=== PATIENT | female | born 1990 | race Caucasian/White ===

== ENCOUNTER 2020-01-19 17:17 | Emergency (ER) | payer BC, SELFPAY ==
[2020-01-19 17:23] VITALS: BP 153/97; PULSE 88; RESP 24; TEMP 36.5; O2SAT 100
--- NOTE | 2020-01-19 17:36 | ED.GENADULT ---
HPI - General Adult General Chief complaint: Upper Respiratory Infection Stated complaint: sore throat Time Seen by Provider: 01/19/20 17:36 Source: patient and RN notes reviewed Mode of arrival: ambulatory Limitations: no limitations History of Present Illness HPI narrative: 29-year-old female presents with complaints of fatigue and sore throat for the past 2 days. Ibuprofen, last 01/18/20 @ 18:00 with little relief. No high fevers, drooling, neck or throat swelling. Pain is bilateral, greater on the right side. Hurts to swallow. Exacerbation factors consist of eating and drinking. No rhinorrhea or nasal congestion. No voice change. Tolerating liquids well. Denies chills, dyspnea, difficulty swallowing, jaw pain, dental pain, facial pain, foreign body sensation, and rash. Remains active. LMP ended 01/17/20 per Betzaida. The patient reports she have not been diagnosed with COVID-19. The patient reports she is not waiting for the results of a COVID-19 lab test. The patient reports she do not have fever, chills, weakness, fatigue, myalgia, or facial swelling. The patient reports she do not have a new or worsening cough or shortness of breath. Denies chest pain. The patient reports she do not have any rhinorrhea, congestion, nausea, vomiting, abdominal pain, and diarrhea. Denies recent traveling. Denies concerns for COVID-19 or exposures been home since yacb-co-qcoa order except for essential household needs, working, and return home. At this time, patient is not suspected of having COVID-19. Some parts of this dictation were generated by voice recognition software and may contain typographical and/or grammatical inaccuracies. Related Data Allergies Allergy/AdvReac Type Severity Reaction Status Date / Time No Known Allergies Allergy Unverified 01/19/20 17:20 Review of Systems Review of Systems: Narrative: CONSTITUTIONAL: Denies fever, chills, sweats. Complains of fatigue. EYES: Denies visual changes, redness, discharge. ENT: Denies rhinorrhea, otalgia, congestion. Complains of sore throat. CARDIOVASCULAR: Denies chest pain, palpitations, edema. RESPIRATORY: Denies dyspnea, wheezing, cough. GASTROINTESTINAL: Denies abdominal pain, nausea congestion, vomiting, diarrhea. GENITOURINARY: Denies dysuria, hematuria, abnormal discharge. SKIN: Denies rash or itching. MUSCULOSKELETAL: Denies acute back pain, joint pain, or myalgia. NEUROLOGIC: Denies numbness or focal weakness. PSYCHIATRIC: Denies anxiety or depression. All systems reviewed & are unremarkable except as noted in HPI and below. [facility] Past Medical History Medical History (Updated 01/26/20 @ 02:33 by BRANDON Sood) Knee injury Surgical History Surgical History (Updated 01/26/20 @ 02:33 by BRANDON Sood) History of cholecystectomy 2017 Family History Family History Other Diabetes mellitus Family history of seizure disorder Social History Social History (Updated 01/26/20 @ 02:34 by BRANDON Sood) Smoking status: Never smoker Second hand tobacco smoke exposure: No Alcohol intake: never Substance use: never Living arrangements: with family Occupation/Education: occupation Gender identity (if verbalized by the patient): Female Comments At time of signature, agree with nurse past medical, surgical, social, and family history. There is no relevant family history pertinent to the presenting complaint. Exam Narrative: Exam Narrative: GENERAL: This is a well-nourished, well-developed patient, in no apparent distress. Speaks in full sentences without deficits and ambulates with steady gait without dyspnea. HEAD: normocephalic, atraumatic. EYES: PERRL. Sclera clear/white. Vision is grossly intact. EARS: External ears normal, auditory canals clear and without drainage, TMs normal without perforation. Hearing grossly intact. NOSE: External nose normal
== END 2020-01-19 18:08 | disposition home or self-care (01) ==
PROVIDERS: Emergency Provider Nurse Practitioner Family; PCP Family Medicine
DX: J02.9 Acute pharyngitis, unspecified (principal); Z20.828 Contact with and (suspected) exposure to other viral communicable diseases; R03.0 Elevated blood-pressure reading, without diagnosis of hypertension
CPT/HCPCS: 87081; 87804; 87880; 99213; G0463

== ENCOUNTER 2020-03-03 17:02 | Emergency (ER) | payer OTHER, BC, SELFPAY ==
--- NOTE | ~2020-03-03 | XR_ITS ---
EXAMINATION: XR hand RT min 3V EXAM DATE: 03/03/2020 17:18 INDICATION: Initial encounter following injury, with pain of the right hand, 4th finger, 4th metacar pal. TECHNIQUE: Right hand frontal, lateral and oblique projections obtained and reviewed. There is no pr ior study for comparison. FINDINGS: Right metacarpal bones are unremarkable. There are no acute fractures or dislocations iden tified. There is no subcutaneous gas. The soft tissue is unremarkable. There are no radiopaque fo reign bodies. IMPRESSION: 1. Right hand exam without acute osseous findings. Reviewed, dictated and finalized at location A.
--- NOTE | 2020-03-03 17:23 | ED.UPPEXIN ---
HPI - Extremity Injury (Upper) General Chief Complaint: Extremity Injury, Upper Stated Complaint: R/hand injury Time Seen by Provider: 03/03/20 17:04 Source: patient Mode of arrival: ambulatory Limitations: no limitations History of Present Illness HPI narrative: 29 year old female presents to urgent care with complaints of pain to her right fourth finger after jamming it against the wall of a freezer while at work last night at 10:15 PM. Patient has been taking [id number] ibuprofen with minimal relief. Patient denies numbness, tingling, erythema or bruising. MD complaint: injury to: right and finger (4th) Place: work Severity: mild Exacerbating factors: movement of extremity Associated symptoms: denies other symptoms Treatments prior to arrival: NSAIDS Related Data Home Medications Medication Instructions Recorded Confirmed omeprazole 20 mg PO DAILY 03/03/20 03/03/20 Allergies Allergy/AdvReac Type Severity Reaction Status Date / Time No Known Allergies Allergy Verified 03/03/20 17:14 Review of Systems Constitutional: Constitutional: Denies chills, Denies fever(s) and Denies weakness ENT: Denies dizziness Cardiovascular: Cardiovascular: Denies chest pain and Denies radiating jaw, neck or arm pain Respiratory: Respiratory: Denies cough Gastrointestinal: Gastrointestinal: Denies diarrhea, Denies nausea and Denies vomiting Musculoskeletal: Comments: Right fourth finger pain Integumentary/Breasts: Skin/Breast: Denies rash PMFSH Past Medical History Medical History Knee injury Surgical History Surgical History History of cholecystectomy 2017 Family History Family History Other Diabetes mellitus Family history of seizure disorder Social History Social History Smoking status: Never smoker Second hand tobacco smoke exposure: No Alcohol intake: never Substance use: never Gender identity (if verbalized by the patient): Female Exam Const: General: healthy appearing, no acute distress and alert Orientation/consciousness: patient oriented x3 Neck: Neck: normal visual inspection Resp: Effort & Inspection: normal respiratory effort, not labored and not tachypneic Auscultation: clear to auscultation bilaterally, no rales, no rhonchi and no wheezes Cardio: Rate: regular rate Rhythm: regular rhythm Heart sounds: no murmurs Skin: General skin exam: normal color Rashes: no rashes Neuro: General: patient oriented x3 and moves all extremities Extrem: General: normal to inspection and no edema Other: Pain noted to distal aspect of right fourth finger upon palpation; there is no deformity, bruising, bleeding, erythema or swelling noted. MDM - Extremity Injury (Upper) MDM Narrative Medical decision making narrative: Finger splint applied to right fourth finger per nursing staff. Work excuse provided for patient. Rice therapy discussed with patient. Patient agrees to continue [id number] Motrin or Tylenol as needed. Differential Diagnosis Differential diagnosis: Likely dislocation of finger and other (Fracture, abrasion) Imaging Data Radiologist's impression: Right hand x-ray negative per radiologist Critical Care Time Critical Care Time Critical Care Time: No Discharge Plan Discharge Clinical Impression: Other sprain of right ring finger, initial encounter Patient Disposition: Home, Self-Care Condition: Stable Instructions: Antibiotic Form, Finger Sprain (ED) Additional Instructions: [id number]-ycj-[id number] Motrin or Tylenol as needed Apply ice to area of pain Wear finger splint Follow-up with orthopedics if symptoms do not improve Patient Language: Ukrainian Prescriptions: No Action omeprazole 20 mg Capsule,Delayed Release(Dr/Ec) 2
== END 2020-03-03 17:36 | disposition home or self-care (01) ==
PROVIDERS: Emergency Provider Nurse Practitioner Family
DX: S63.694A Other sprain of right ring finger, initial encounter (principal); W22.8XXA Striking against or struck by other objects, initial encounter; Y99.0 Civilian activity done for income or pay
CPT/HCPCS: 29130; 73130; 99213; G0463

== ENCOUNTER 2022-01-26 10:04 | Emergency (ER) | payer BC, SELFPAY ==
--- NOTE | ~2022-01-26 | XR_ITS ---
XR foot LT min 3V DATE: 01/26/2022 10:24 INDICATION: Inversion injury. Metatarsal pain. TECHNIQUE: 4 views COMPARISON: None FINDINGS: Mild posterior prominent plantar calcaneal enthesopathy. No fracture or dislocation, periosteal reaction or bone destruction is detected. IMPRESSION: No fracture or dislocation Plantar and posterior calcaneal enthesopathy Reviewed, dictated and finalized at location A.
--- NOTE | 2022-01-26 10:09 | ED.LOWEXIN ---
HPI - Extremity Injury (Lower) General Chief Complaint: Extremity Injury, Lower Stated Complaint: Left Foot Injury Time Seen by Provider: 01/26/22 10:18 Source: patient Mode of arrival: ambulatory Limitations: no limitations History of Present Illness HPI Narrative: Ms. Macario is a 31-year-old female patient presenting to the clinic today with complaints of left lateral foot pain x1 day. She reports that she slipped last night at work and injured her left foot. States that pain is worse with weightbearing. Related Data Allergies Allergy/AdvReac Type Severity Reaction Status Date / Time No Known Allergies Allergy Verified 01/26/22 10:15 Review of Systems Review of Systems: Pertinent positives per HPI. Patient denies any fever, chills, rash, headache, visual changes, dizziness, cough, runny nose, sore throat, shortness of breath, chest pain, palpitations, nausea, vomiting, diarrhea, constipation, abdominal pain, or any urinary issues. [facility] Past Medical History Medical History (Updated 01/26/22 @ 10:43 by Mirza Simpson APRN) Knee injury Surgical History Surgical History History of cholecystectomy 2017 Family History Family History Other Diabetes mellitus Family history of seizure disorder Social History Social History Smoking status: Never smoker Second hand tobacco smoke exposure: No Alcohol intake: never Substance use: never Gender identity (if verbalized by the patient): Female Comments At the time of my signature, I reviewed and agree with the nursing past medical, surgical, social, and family history. There is no relevant family history pertinent to the patient complaint. Exam Narrative: General: Well-developed, morbidly obese, in no apparent distress Head: Normocephalic, atraumatic. Cardio: Regular rate and rhythm, s1 and s2 normal, no murmur appreciated. Resp: Clear to auscultation bilaterally, no rhonchi, rales, wheezing or rubs. Musculoskeletal: No deformity, no bruising or swelling, tenderness to palpation over the mid fifth metatarsal, grossly normal range of motion, muscle strength strong and equal, peripheral pulse strong, no edema, no cyanosis, normal gait and station Course Course Emergency Course: Portions of this record may have been created with voice recognition software. Level of Care: Express Care Visit Vital Signs Vital signs: Vital Signs Temperature 36.9 C 01/26/22 10:14 Pulse Rate 87 01/26/22 10:14 Respiratory Rate 16 01/26/22 10:14 Blood Pressure 146/81 H 01/26/22 10:14 Pulse Oximetry 98 01/26/22 10:14 Oxygen Delivery Room Air 01/26/22 10:14 Temperature 36.9 C 01/26/22 10:16 Pulse Rate 87 01/26/22 10:16 Respiratory Rate 16 01/26/22 10:16 Blood Pressure 146/81 H 01/26/22 10:16 Pulse Oximetry 98 01/26/22 10:16 Oxygen Delivery Room Air 01/26/22 10:16 Vital signs reviewed MDM - Extremity Injury (Lower) MDM Narrative Medical decision making narrative: At the time of visit patient is resting comfortably on the exam table. X-ray was performed and was negative for any fracture of the left foot. I suspect that the patient has a sprain to her left foot. Supportive measures were discussed and she voiced understanding of discharge instructions and agrees to treatment plan. Differential Diagnosis Differential diagnosis: Likely other (Foot sprain, metatarsal fracture) Imaging Data My impression: Negative for any fracture or malalignment of the left foot Radiologist's impression: Launch?[facility] Express [facility] [address] [place] [address] XRay Report Signed Patient: Betzaida Macario : 1990 MR#: [id number] Age/Sex: 31 / F Acct:[id number] Loc: EXPBE
[2022-01-26 10:14] VITALS: BP 146/81; PULSE 87; RESP 16; TEMP 36.9; O2SAT 98
[2022-01-26 10:16] VITALS: BP 146/81; PULSE 87; RESP 16; TEMP 36.9; O2SAT 98
--- NOTE | 2022-01-26 14:05 | PC.NURSE ---
1010 PT DECLINED WHEELCHAIR TO RADIOLOGY AND PT ROOM.
== END 2022-01-26 10:47 | disposition home or self-care (01) ==
PROVIDERS: Emergency Provider Nurse Practitioner Family
DX: S93.602A Unspecified sprain of left foot, initial encounter (principal); W18.40XA Slipping, tripping and stumbling without falling, unspecified, initial encounter
CPT/HCPCS: 73630; 99213; G0463

== ENCOUNTER 2023-08-05 13:20 | Emergency (ER) | payer OTHER, SELFPAY ==
--- NOTE | ~2023-08-05 | XR_ITS ---
XR ankle LT min 3V 08/05/2023 14:29 INDICATION: Left ankle pain after fall PROCEDURE: 4 views left ankle COMPARISON: No prior studies FINDINGS: Fracture, dislocation or subluxation is not identified. Ankle mortise intact. Mild diffuse soft tissue swelling. Prominent degenerative calcaneal enthesophytes. No foreign bodies are identifi ed. IMPRESSION: 1: NO ACUTE BONE OR JOINT ABNORMALITY IDENTIFIED. Reviewed, dictated and finalized at location L. 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
--- NOTE | ~2023-08-05 | XR_ITS ---
XR knee LT 3V 08/05/2023 14:29 Indication: Left knee pain Procedure: 3 views left knee Comparison: 01/21/2017 Findings: Mild-moderate osteoarthritis. Small knee effusion. No fracture or traumatic malalignment. N o foreign bodies. Impression: 1: No acute bone or joint abnormality. 2: Mild-moderate tricompartment osteoarthritis. Reviewed, dictated and finalized at location L. 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 2: Mild-moderate tricompartment osteoarthritis.
[2023-08-05 13:50] VITALS: BP 140/95; PULSE 81; RESP 18; TEMP 36.4; O2SAT 100
--- NOTE | 2023-08-05 14:34 | ED.LOWEXIN ---
HPI - Extremity Injury (Lower) General Chief Complaint: Extremity Injury, Lower Stated Complaint: Left Knee and Ankle Injury Time Seen by Provider: 08/05/23 14:00 Source: patient Mode of arrival: ambulatory Limitations: no limitations History of Present Illness HPI Narrative: Uyen is a 33-year-old female patient presenting to the clinic today with complaints of left knee and left ankle pain. She reports that she fell down a few steps yesterday. Having pain to the medial and lateral knee as well as the lateral ankle. States pain is worse with ambulation. Related Data Home Medications Medication Instructions Recorded Confirmed No Home Medications 08/05/23 08/05/23 Allergies Allergy/AdvReac Type Severity Reaction Status Date / Time No Known Allergies Allergy Verified 08/05/23 13:49 Review of Systems Review of Systems: Pertinent positives per HPI. Patient denies any fever, chills, rash, headache, visual changes, dizziness, cough, runny nose, sore throat, shortness of breath, chest pain, palpitations, nausea, vomiting, diarrhea, constipation, abdominal pain, or any urinary issues. [facility] Past Medical History Medical History (Updated 08/05/23 @ 15:16 by Mirza Simpson APRN) Knee injury Surgical History Surgical History History of cholecystectomy 2017 Family History Family History Other Diabetes mellitus Family history of seizure disorder Social History Social History Smoking status: Never smoker Second hand tobacco smoke exposure: No Alcohol intake: never Substance use: never Living arrangements: with family Occupation/Education: occupation Gender identity (if verbalized by the patient): Female Comments At the time of my signature, I reviewed and agree with the nursing past medical, surgical, social, and family history. There is no relevant family history pertinent to the patient complaint. Exam Narrative: General: Well-developed, well nourished, in no apparent distress Head: Normocephalic, atraumatic. Cardio: Regular rate and rhythm, s1 and s2 normal, no murmur appreciated. Resp: Clear to auscultation bilaterally, no rhonchi, rales, wheezing or rubs. Musculoskeletal: No deformity,tender to palpation over the medial and lateral knee as well as the lateral ankle, swelling noted to the lateral left ankle, pain with flexion and extension of the left knee over the medial and lateral knee, anterior drawer, posterior drawer, and valgus/varus testing completed with minimal pain grossly normal range of motion, muscle strength strong and equal, peripheral pulse strong, no edema, no cyanosis, normal gait and station Course Course Emergency Course: Portions of this record may have been created with voice recognition software. Level of Care: Express Care Visit Vital Signs Vital signs: Vital Signs Temperature 36.4 C L 08/05/23 13:50 Pulse Rate 81 08/05/23 13:50 Respiratory Rate 18 08/05/23 13:50 Blood Pressure 140/95 H 08/05/23 13:50 Pulse Oximetry 100 08/05/23 13:50 Oxygen Delivery Room Air 08/05/23 13:50 Temperature 36.4 C L 08/05/23 13:50 Pulse Rate 81 08/05/23 13:50 Respiratory Rate 18 08/05/23 13:50 Blood Pressure 140/95 H 08/05/23 13:50 Pulse Oximetry 100 08/05/23 13:50 Oxygen Delivery Room Air 08/05/23 13:50 Vital signs reviewed MDM - Extremity Injury (Lower) MDM Narrative Medical decision making narrative: At the time of visit patient is resting comfortably on the exam table. Patient appears to be nontoxic. X-ray of the left knee and left ankle were performed in the clinic today. Supportive measures were discussed with the patient and they voiced understanding discharge instructions and agrees to treatment plan. Return precautions revie
== END 2023-08-05 15:18 | disposition home or self-care (01) ==
PROVIDERS: Emergency Provider Nurse Practitioner Family
DX: M25.462 Effusion, left knee (principal); S83.92XA Sprain of unspecified site of left knee, initial encounter; S93.402A Sprain of unspecified ligament of left ankle, initial encounter; W10.9XXA Fall (on) (from) unspecified stairs and steps, initial encounter
CPT/HCPCS: 73562; 73610; 99214; G0463

== ENCOUNTER 2024-11-11 16:50 | Emergency (ER) | payer OTHER, SELFPAY ==
--- OUTSIDE RECORDS SUMMARY | 2024-11-11 16:51 | XMS_ITS | Referral Summary ---
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 30 tablet 2 Active tamsulosin (FLOMAX) 0.4 mg extended release capsuleIndicat ions:Urolithia sis Take 1 capsule (0.4 mg total) by mouth 2 (two) times a day for 10 doses 10 capsule 2 Active LORazepam (ATIVAN) 0.5 mg tabletIndicati ons:anxiety Take 1 tablet (0.5 mg total) by mouth 3 (three) times a day as needed for anxiety (to help sleep and relax to help stone pain) 15 tablet 2 Active ibuprofen (ADVIL,MOTRIN) 800 mg tablet Take 1 tablet (800 mg total) by mouth 3 (three) times a day 21 tablet 3 Active traMADoL (ULTRAM) 50 mg tablet Take 1 tablet (50 mg total) by mouth every 6 (six) hours as needed for pain for up to 15 doses 15 tablet 3 Active naproxen (NAPROSYN) 500 mg tabletIndicati ons:Lumbar strain, initial encounter Take 1 tablet (500 mg total) by mouth 2 (two) times a day with meals Collaborating physician Bryan Duvall MD 30 tablet 3 Active lidocaine (LIDODERM) 5 %Indications:L umbar strain, initial encounter Place 1 patch on the skin daily Apply over area of maximal intensity pain. Remove & discard patch within 12 hours or as directed by MD. Collaborating physician Bryan Duvall MD 30 patch 3 Active cyclobenzaprin e (FLEXERIL) 5 mg tabletIndicati ons:Lumbar strain, initial encounter Take 1 tablet (5 mg total) by mouth 3 (three) times a day as needed (Take as directed to relax muscles) Take as directed to relax muscles. Collaborating physician Bryan Duvall MD 30 tablet 3 Active Active Problems Problem Noted Date Diagnosed Date Lumbar strain, initial encounter 06/18/2023 Morbid obesity with BMI of 50.0-59.9, adult 10/2020 Resolved Problems Problem Noted Date Diagnosed Date Resolved Date Calculus of gallbladder with acute cholecystitis without obstruction 04/09/20172016 Social History Tobacco Use Types Packs/Day Years Used Date Smoking Tobacco: Never Smokeless Tobacco: Never Alcohol Use Standard Drinks/Week Comments No 0 (1 standard drink = 0.6 oz pur e alcohol) Personal Safety Answer Date Recorded Have you ever been in or are you currently in a harmful physical or emotional relationship or is someone making you feel afraid or unsafe? Denies 06/18/2023 Comments No Sex and Gender Information Value Date Recorded Sex Assigned at Not on file Legal Sex Female 5:42 PM REHAB TECH Gender Identity Not on file Sexual Orientation Not on file Last Filed Vital Signs Vital Sign Reading Time Taken Comments Blood Pressure 162/94 06/18/2023 12:24 PM REHAB TECH Pulse 77 06/18/2023 12:24 PM REHAB TECH Temperature 36.4 C (97.5 F) 06/18/2023 9:18 AM REHAB TECH Respiratory Rate 16 06/18/2023 12:24 PM REHAB TECH Oxygen Saturation 98% 06/18/2023 12:24 PM REHAB TECH Inhaled Oxygen Concentration - - Weight 179.2 kg (395 lb) 06/18/2023 9:18 AM REHAB TECH Height 175.3 cm (5' 9 ) 06/18/2023 9:18 AM REHAB TECH Body Mass Index 58.33 06/18/2023 9:18 AM REHAB TECH Plan of Treatment Not on file Insurance [facility] [facility] Address: [place] [id number] [facility] [employer] Address: [place] [address] Care Teams 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
--- OUTSIDE RECORDS SUMMARY | 2024-11-11 16:51 | XMS_ITS | Clinical Summary ---
Author Organization [facility] Address [address] [facility], [place] [address] Phone Care Team Providers Care Chief Medical Technologist Name Role Phone Swapnilward Ariela Reynolds JARETT, WINCHMAN/CRANE OPERATOR Unavailable Brii Zamora MD Primary Care Provider [phone] Allergies No known active allergies Medications ibuprofen (MOTRIN) 200 MG Tablet Take 200 mg by mouth as needed. Active clotrimazole-be tamethasone (LOTRISONE) 1-0.05 % Cream Application Site: left foot plantar aspect under occlusion 1 Tube 3 9 Active Additional Information Patient not taking.Reported on 05/18/2020 omeprazole (PriLOSEC) 20 MG CAPSULE DELAYED RELEASE TK 1 C PO QD HS 0 Active aspirin EC 81 MG Tablet Delayed Response Take 1 Tab by mouth 2 times daily. 60 Tab 0 Active Diclofenac Sodium (Voltaren) 1 % Gel Apply 1 g 4 times daily. Left foot heel pain 100 g 1 Active Additional Information Patient not taking.Reported on 09/26/2022 atorvastatin (LIPITOR) 40 MG Tablet Take 40 mg by mouth daily. Active losartan potassium-hydro chlorothiazide (HYZAAR) 100-25 MG Tablet Take 1 Tablet by mouth daily. Active metoprolol Succinate (TOPROL-XL) 25 MG TABLET SR 24 HR Take 25 mg by mouth daily. Active Blisovi 24 Fe 1-20 MG-MCG(24) Tablet Take 1 Tablet by mouth daily. 3 Active Vit-Fe Fumarate-FA ( multivitamin) 28-0.8 MG Tablet Take 1 Tablet by mouth daily. 3 Active Active Problems Problem Noted Date Diagnosed Date ANKUR (obstructive sleep apnea) 12/24/2022 Class 3 severe obesity due t o excess calories without serious comorbidity with body mass index (BMI) of 60.0 to 69.9 in adult 12/24/2022 Plantar fasciitis, right Overview (02/22/2015): Improved Calcaneal spur Overview (02/22/2015): R Pes equinus, acquired Overview (02/22/2015): BLE Resolved Problems Problem Noted Date Diagnosed Date Resolved Date Suspected sleep apnea 09/30/20222022 Excessive daytime sleepiness 09/30/2022 12/24/2022 Family History Medical History Relation Name Comments Diabetes Father Diabetes Sister 1 Relation Name Status Comments Brother Alive Father Alive Mother Alive Sister 1 Alive Sister 2 Alive Social History Tobacco Use Types Packs/Day Years Used Date Smoking Tobacco: Never Smokeless Tobacco: Never Tobacco Cessation:Counseling Given: Not Answered Alcohol Use Standard Drinks/Week Comments Not Currently 0 (1 standard drink = 0.6 oz pur e alcohol) AUDIT-C Answer Date Recorded Frequency of Alcohol Consumption Never 06/07/2019 Average Number of Drinks Not on file 019 Frequency of Binge Drinking Not on file 05/12 Sexually Active Control Partners Comments Not Currently Comments No Sex and Gender Information Value Date Recorded Sex Assigned at Not on file Legal Sex Female 8:03 PM CDT Gender Identity Not on file Sexual Orientation Not on file Last Filed Vital Signs Vital Sign Reading Time Taken Comments Blood Pressure 124/74 12/24/2022 8:06 AM CDT Pulse 74 12/24/2022 8:06 AM CDT Temperature 36.2 C (97.2 F) 12/24/2022 8:06 AM CDT Respiratory Rate 14 12/24/2022 8:06 AM CDT Oxygen Saturation 98% 12/24/2022 8:06 AM CDT Inhaled Oxygen Concentration - - Weight 186 kg (410 lb 1.6 oz) 12/24/2022 8:06 AM CDT Height 172.7 cm (5' 8 ) 12/24/2022 8:06 AM CDT Body Mass Index 62.36 12/24/2022 8:06 AM CDT Plan of Treatment Health Maintenance Due Date Last Done Comments Hepatitis C Virus (HCV) Screening 1988 Pap Smear 2009 Cervical Cancer Screening (CCS) 2018 HPV/Cotest 2018 Influenza Immunization (#1) 2024 SARS-COV-2 Immunization ( season) 2024 Respiratory Syncytial Virus (RSV) Immunization (Adult) (1 - 1-dose 75+ series) 2063 Hepatitis B Immunization Completed 999, 02/21/1999, 12/18/1998 DTaP/Tdap/Td Immunization Discontinued 2021, 12/03/1993, 02/24/1990, Additional history exists TdaP Immunization Completed 03/18/2022 Meningococcal Immunization (ACWY) Aged Out No longer eligible based on patient's age to complete this topic Pneumococcal Immunization Combined Aged Out No longer eligible based on patient's age to complete this topic Rotavirus Immunization Aged Out No lo nger eligible based on patient's age to complete this topic Insurance [place] Member Subscriber Plan / Payer (Ef fective 2022-Present) Name:Betzaida Macario Relation to Subscriber:Self Name:Betzaida Macario Payer ID:[id number] Group ID:Not on file Type:Not on file Address: [address] Care Teams Chief Medical Technologist Relationship Specialty Start Date End Date Brii Zamora MD [address] [place] [address] [address] [place] [address] PCP - General Family Medicine 06/29/24 Ariela Beltre APRN, WINCHMAN/CRANE OPERATOR [address] [facility] [address] [place] [address] Nurse Practitioner Advanced Practice Nurse 09/30/22
--- OUTSIDE RECORDS SUMMARY | 2024-11-11 16:52 | XMS_ITS | Data Portability ---
Author Organization [facility] Address [address] [place] [address] Assessment No assessment recorded. Plan of Treatment Reminders Order Date Submit Date Provider Last Modified By Organization Details Last Modified Time Details Appointments ACUTE 15 2024 04:00P M DONITA BLAIR, DO Not available Not available Not available Lab vaginal pathogen s panel, RANDI+prob e, vaginal fluid 2024 025 [facility], [address] [place] [address] [place], [address], 09/06/2024 06:07:41 pap, IG + reflex HPV 2024 025 [facility], [address] [place] [address] 2, [place], [address], 09/10/2024 15:22:11 CBC w/ auto diff 2024 025 [facility], [address] [place] [address] 2, [place], [address], 08/27/2024 07:15:40 pregnanc y test, urine 2023 024 [email or web address] In-Office Order, Internal Use Only DO Not Attach Compendium DO Not Attach Compendium, Do Not Delete/merge, [id number] 07/23/2024 11:30:39 Referral None recorded . Procedures insertio n, implanta ble contrace ptive (PROC) 2023 024 benjy [facility], [address], [place] [address], [address], 08/23/2024 08:31:01 Surgeries None recorded . Imaging None recorded . Medication Orders metformi n 1,000 mg tablet 2024 025 [facility] [id number], [address], 09/17/2024 12:40:27 norethin drone acetate 5 mg tablet 2024 025 [facility] [address], [address], 08/26/2024 11:26:51 Nexplano n 68 mg subderma l implant 2023 024 [email or web address] Not available 07/23/2024 12:52:46 Mounjaro 2.5 mg/0.5 mL subcutan eous pen injector 2023 024 etodaroma [facility] [address], [address], 08/26/2024 09:22:43 Patient TargetsNo targets recorded. Patient Instructions Encounter Date Encounter Id Patient Instructions Last Modified By Organization Details Last Modified Time 07/15/2024 [id number] learning about type 2 diabetes augabi Not available 07/15/2024 09:47:50 When You Want to Lose Weight: Care Instructions augabi Not available 07/15/2024 09:47:50 learning about high blood pressure augabi Not available 07/15/2024 09:47:50 I spoke directly with the patient on the phone during the resident encounter and verified the patient's situation, understanding, assessment and plan. I have reviewed and agree wtih the resident's documentation, assessment, and plan. Brian Grijalva MD [email or web address] Not available 07/15/2024 09:43:34 07/23/2024 [id number] On the date of this encounter, I saw and examined the patient, personally verifying the trinh and critical findings in the resident s note. I reviewed and agree with the resident/fellow s findings and plan as discussed. ~MD Jones [email or web address] Not available 07/23/2024 09:52:39 08/26/2024 [id number] I saw the patien t with the resident. I agree with the resident's assessment and plan as documented MD houston [email or web address] Not available 08/31/2024 10:51:21 09/02/2024 [id number] I saw the patien t with the resident. I agree with the resident's assessment and plan as documented MD houston [email or web address] Not available 09/17/2024 00:30:46 09/17/2024 [id number] learning about type 2 diabetes [email or web address] Not available 09/17/2024 12:40:12 type 2 diabetes: care instructions [email or web address] Not available 09/17/2024 12:40:12 A healthy lifestyle: care instructions [email or web address] Not available 09/17/2024 12:40:12 I was present in the clinic to discuss this patient at the time of the visit. I agree with the documented assessment and plan MD yulia [email or web address] Not available 09/17/2024 12:52:59 Reason for Referral None Reported. Results Created Date Observation Date Name Description Value Unit Range Abnormal Flag Note LastModifiedBy Organization Detail LastModifiedTime 07/23/20 24 07/23/2024 pregn jonel test, urine HCG negati ve Not Available In-Office Order Internal Use Only DO Not Attach Compendium DO Not Attach Compendium, Do Not Delete/merge, [id number] 07/23/2024 09:34:06 08/26/1908/27/2024 CBC WITH DIFFE RENTI AL/PL ATELE T WBC 8.7 x10e3 /uL 3.4-10 .8 Not Available [facility] ([facility]) [address] [facility], [place], [address], 08/27/2024 07:15:40 08/26/19 25 08/27/2024 CBC WITH DIFFE RENTI AL/PL ATELE T RBC 4.54 x10e6 /uL 3.77-5 .28 Not Available [facility] ([facility]) [address] [place], [address], 08/27/2024 07:15:40 08/26/19 25 08/27/2024 CBC WITH DIFFE RENTI AL/PL ATELE T hemoglobin 12.1 g/dL 11.1-1 5.9 Not Available [facility] ([facility]) [address] [place], [address], 08/27/2024 07:15:40 08/26/1908/27/2024 CBC WITH DIFFE RENTI AL/PL ATELE T hematocrit 38.9 % 34.0-4 6.6 Not Available [facility] ([facility]) [address] [facility], [place], [address], 08/27/2024 07:15:40 08/26/19 25 08/27/2024 CBC WITH DIFFE RENTI AL/PL ATELE T MCV 86 fL 79-97 Not Available [facility] ([facility]) [address] [place], [address], 08/27/2024 07:15:40 08/26/19 25 08/27/2024 CBC WITH DIFFE RENTI AL/PL ATELE T MCH 26.7 pg 26.6-3 3.0 Not Available [facility] ([facility]) [address] [place], [address], 08/27/2024 07:15:40 08/26/19 25 08/27/2024 CBC WITH DIFFE RENTI AL/PL ATELE T MCHC 31.1 g/dL 31.5-3 5.7 below low normal Not Available [facility] ([facility]) [address] [place], [address], 08/27/2024 07:15:40 08/26/19 25 08/27/2024 CBC WITH DIFFE RENTI AL/PL ATELE T RDW 13.4 % 11.7-1 5.4 Not Available [facility] ([facility]) [address] [facility], [place], [address], 08/27/2024 07:15:40 08/26/19 25 08/27/2024 CBC WITH DIFFE RENTI AL/PL ATELE T platelets 447 x10e3 /uL 150-45 0 Not Available [facility] ([facility]) [address] [facility], [place], [address], 08/27/2024 07:15:40 08/26/19 25 08/27/2024 CBC WITH DIFFE RENTI AL/PL ATELE T neutrophils 65 % notest ab. Not Available [facility] ([facility]) [address] [facility], [place], [address], 08/27/2024 07:15:40 08/26/19 25 08/27/2024 CBC WITH DIFFE RENTI AL/PL ATELE T lymphs 26 % notest ab. Not Available [facility] ([facility]) [address] [facility], [place], [address], 08/27/2024 07:15:40 08/26/19 25 08/27/2024 CBC WITH DIFFE RENTI AL/PL ATELE T monocytes 5 % notest ab. Not Available [facility] ([facility]) [address] [facility], [place], [address], 08/27/2024 07:15:40 08/26/19 25 08/27/2024 CBC WITH DIFFE RENTI AL/PL ATELE T eos 2 % notest ab. Not Available [facility] ([facility]) [address] [facility], [place], [address], 08/27/2024 07:15:40 08/26/19 25 08/27/2024 CBC WITH DIFFE RENTI AL/PL ATELE T basos 1 % notest ab. Not Available [facility] ([facility]) [address] [facility], [place], [address], 08/27/2024 07:15:40 08/26/19 25 08/27/2024 CBC WITH DIFFE RENTI AL/PL ATELE T neutrophils (absolute) 5.8 x10e3 /uL 1.4-7. 0 Not Available [facility] ([facility]) [address] [facility], [place], [address], 08/27/2024 07:15:40 08/26/19 25 08/27/2024 CBC WITH DIFFE RENTI AL/PL ATELE T lymphs (absolute) 2.2 x10e3 /uL 0.7-3. 1 Not Available [facility] ([facility]) [address] [facility], [place], [address], 08/27/2024 07:15:40 08/26/19 25 08/27/2024 CBC WITH DIFFE RENTI AL/PL ATELE T monocytes(ab solute) 0.4 x10e3 /uL 0.1-0. 9 Not Available [facility] ([facility]) [address] [facility], [place], [address], 08/27/2024 07:15:40 08/26/19 25 08/27/2024 CBC WITH DIFFE RENTI AL/PL ATELE T eos (absolute) 0.1 x10e3 /uL 0.0-0. 4 Not Available [facility] ([facility]) [address] [facility], [place], [address], 08/27/2024 07:15:40 08/26/19 25 08/27/2024 CBC WITH DIFFE RENTI AL/PL ATELE T baso (absolute) 0.1 x10e3 /uL 0.0-0. 2 Not Available [facility] ([facility]) [address] [facility], [place], [address], 08/27/2024 07:15:40 08/26/19 25 08/27/2024 CBC WITH DIFFE RENTI AL/PL ATELE T immature granulocytes 1 % notest ab. Not Available [facility] ([facility]) [address] [facility], [place], [address], 08/27/2024 07:15:40 08/26/19 25 08/27/2024 CBC WITH DIFFE RENTI AL/PL ATELE T immature grans (abs) 0.0 x10e3 /uL 0.0-0. 1 Not Available [facility] ([facility]) [address] [facility], [place], [address], 08/27/2024 07:15:40 09/03/19 25 09/05/2024 NUSWA B VAGIN ITIS PLUS (VG+) atopobium vaginae LOW - 0 score Not Available [facility] ([facility]) [address] [facility], [place], [address], 09/06/2024 06:07:41 09/03/19 25 09/05/2024 NUSWA B VAGIN ITIS PLUS (VG+) bvab 2 LOW - 0 score Not Available [facility] ([facility]) [address] [facility], [place], [address], 09/06/2024 06:07:41 09/03/1909/05/2024 NUSWA B VAGIN ITIS PLUS (VG+) megasphaera 1 LOW - 0 score Calcu late total score by misbah watters the 3 indiv idual bacte rial vagin osis (BV) marke r score s toget her. Total score is inter prete d as follo ws: Total score 0-1: Indic ates the absen ce of BV. Total score 2: Indet ermin ate for BV. Addit ional clini yoni data shoul d be evalu ated to estab deborah a diagn osis. Total score 3-6: Indic ates the prese nce of BV. Not Available [facility] ([facility]) [address] [facility], [place], [address], 09/06/2024 06:07:41 09/03/19 25 09/05/2024 NUA B VAGIN ITIS PLUS (VG+) bossman albicans, RANDI NEGATI VE negati ve Not Available [facility] ([facility]) [address] [place], [address], 09/06/2024 06:07:41 09/03/19 25 09/05/2024 NUA B VAGIN ITIS PLUS (VG+) bossman glabrata, RANDI NEGATI VE negati ve Not Available [facility] ([facility]) [address] [place], [address], 09/06/2024 06:07:41 09/03/1909/06/2024 NUA B VAGIN ITIS PLUS (VG+) trich vag by RANDI NEGATI VE negati ve Not Available [facility] ([facility]) [address] [place], [address], 09/06/2024 06:07:41 09/03/1909/06/2024 NUA B VAGIN ITIS PLUS (VG+) chlamydia trachomatis, RANDI NEGATI VE negati ve Not Available [facility] ([facility]) [address] [place], [address], 09/06/2024 06:07:41 09/03/1909/06/2024 NUA B VAGIN ITIS PLUS (VG+) neisseria gonorrhoeae, RANDI NEGATI VE negati ve Not Available [facility] ([facility]) [address] [place], [address], 09/06/2024 06:07:41 09/03/1909/03/2024 IGP,A PTIMA HPV,A GE GDLN age gdln acog testing 30-65 Not Available [facility] ([facility]) [address] [place], [address], 09/10/2024 15:22:11 09/03/19 25 09/06/2024 IGP, APTIM A HPV, RFX 16/18 ,45 HPV aptima Negati ve negati ve This nucle ic acid ampli ficat ion test detec ts fourt een high- risk HPV types (16,1 8,31, 33,35 ,39,4 5,51, 52,56 ,58,5 9,66, 68) witho ut diffe renti ation . Not Available [facility] ([facility]) [address] [facility], [place], [address], 09/10/2024 15:22:12 09/03/19 25 09/10/2024 IGP, APTIM A HPV, RFX 16/18 ,45 diagnosis: Commen t NEGAT PATRICIA FOR INTRA EPITH ELIAL LESIO N OR PRATIMA KOCH . THIS SPECI MEN WAS RESCR EENED PART OF OUR QUALI TY CONTR OL PROGR AM. Not Available [facility] ([facility]) [address] [facility], [place], [address], 09/10/2024 15:22:12 09/03/19 25 09/10/2024 IGP, APTIM A HPV, RFX 16/18 ,45 specimen adequacy: Commen t Satis facto ry for evalu ation . Endoc ervic al and/o r squam ous metap lasti c cells (endo cervi yoni compo nent) are prese nt. Areas of parti ally obscu ring blood are prese nt. Not Available [facility] ([facility]) [address] [facility], [place], [address], 09/10/2024 15:22:12 09/03/19 25 09/10/2024 IGP, APTIM A HPV, RFX 16/18 ,45 clinician provided ICD10: Commen t Z12.4 N93.9 Not Available [facility] ([facility]) [address] [place], [address], 09/10/2024 15:22:12 09/03/19 25 09/10/2024 IGP, APTIM A HPV, RFX 16/18 ,45 performed by: Lyssa Rodríguez ie A Toño r, Cytot echno logis t Not Available [facility] ([facility]) [address] [place], [address], 09/10/2024 15:22:12 09/03/19 25 09/10/2024 IGP, APTIM A HPV, RFX 16/18 ,45 QC reviewed by: Lyssa Kyle er, Cytot echno logis t (ASCP ) Not Available [facility] ([facility]) [address] [place], [address], 09/10/2024 15:22:12 09/03/19 25 09/10/2024 IGP, APTIM A HPV, RFX 16/18 ,45 . . Not Available [facility] ([facility]) [address] [place], [address], 09/10/2024 15:22:12 09/03/19 25 09/10/2024 IGP, APTIM A HPV, RFX 16/18 ,45 note: Lyssa arzate The Pap smear is a scree juan test desig sadie to aid in the detec tion of mitch ligna nt and malig nant condi tions of the uteri ne cervi x. It is not a diagn ostic proce dure and shoul d not be used as the sole means of detec ting cervi yoni cance r. Both false -posi tive and false -nega tive repor ts do occur . Not Available [facility] ([facility]) [address] [place], [address], 09/10/2024 15:22:12 09/03/1909/10/2024 IGP, APTIM A HPV, RFX 16/18 ,45 test methodology: Lyssa arzate This liqui d based ThinP rep(R ) pap test was scree sadie with the use of an image guide tom rodriguez. Not Available [facility] ([facility]) [address] [place], [address], 09/10/2024 15:22:12 09/03/19 25 09/10/2024 IGP, APTIM A HPV, RFX 16/18 ,45 HPV genotype reflex Commen t Crite yandel not met, HPV Genot ype not perfo rmed. Not Available [facility] ([facility]) [address] [facility], [place], [address], 09/10/2024 15:22:12 Result Notes None recorded. Problems Name Problem SNOMED Code Status Onset Date Resolution Date Notes Provider Name and Address Organization Details Recorded Time Archana morris sion 51630910 Active 2019 Brii Zamora MD Attn: Michael watters,[address] [place], [address], [facility] 4 09:21:54 Migraine without aura 55029922 Active 2019 Mai Aguiar [facility], [place] - [facility] 0 16:38:36 Acute pharyngi tis 746090084 Completed 201903/16/2023 Oscar Villa MD Attn: Michael watters,[address] [facility], [place], [address], [facility] - [facility] 3 18:42:22 Gastroes ophageal reflux disease without esophagi tis 940280716 Active 2019 Brii Zamora MD Attn: Michael watters,[address] [facility], [place], [address], [facility] - [facility] 4 09:22:44 Plantar fasciiti s 734752167 Active 2020 surgery 05/31/20 20 Oscar Villa MD Attn: Michael watters,[address] [place], [address], [facility] - [facility] 1 15:42:31 Prediabe ritu 345489530 Active 2022 Brii Zamora MD Attn: Michael watters,[address] [facility], [place], [address], [place] - [facility] 4 09:23:18 Myocardi al ischemia 259114104 Completed 202203/16/2023 pharmaco logic stress test 12/11/19 23- ejection fraction 67%. chest pain during the test, no ST changes, normal perfusio n imaging Removal Reason: stress testing negative Oscar Villa MD Attn: Beverleyangus watters,[address] [facility], [place], [address], [place] - [facility] 3 18:42:11 Mammogra phy normal 417358103 Active 2022 recommen d follow-u p in 3 years- 11/09/19 26 Oscar Villa MD Attn: Beverleyangus watters,[address] [place] [address], [place], [address], [place] - [facility] 3 15:36:05 Obstruct patricia sleep apnea syndrome 84210802 Active 2022 Brii Zamora MD Attn: Beverleyangus watters,[address] [facility], [place], [address], [place] - [facility] 4 09:23:09 Family history of neoplasm of breast 608108063 Active 2022 no family testing done. 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 - SI 09:32:38 Notes:surgery 05/31/2020 Problem Notes None recorded. Procedures Surgical History Date Name Laterality Status Provider Name and Address Organization Details Recorded Time 09/02/19 25 Control Implant Removal completed Brii Zamora MD Attn: Accounting, [address] [facility], [place], [address], [facility] - [facility] 09/07/2024 11:50:33 07/23/20 24 Control Implant Insertion completed STARLA MASSEY MD Attn: Accounting, [address] [facility], [place], [address], [facility] - [facility] 07/23/2024 14:45:37 05/31/20 20 procedure on foot completed Rachael Zazueta MA [place] - [facility] 05/18/2021 15:04:02 Cholecystectomy completed Tila Salgado MA [place] - [facility] 03/31/2017 09:51:16 Imaging Results None recorded. Procedure Notes None recorded. Medical Equipment None Reported. Allergies No known drug allergies Medications Name Sig Start Date Stop Date Status Note LastModified by Organization Details LastModified Time losartan 50 mg tablet TAKE 1 TABLET BY MOUTH EVERY DAY 12/06 completed Not Available Not Available Not Available cyclobenz aprine 10 mg tablet Take 1 tablet 3 times a day by oral route as needed. 02/23 completed Not Available Not Available Not Available amoxicill in 500 mg capsule TAKE 2 CAPSULES BY MOUTH EVERY DAY FOR 10 DAYS 06/14 completed Patient is not taking. Not Available Not Available Not Available medroxypr ogesteron e 10 mg tablet Take 1 tablet every day by oral route for 10 days. 06/14 completed Patient is not taking. Not Available Not Available Not Available atorvasta tin 40 mg tablet Take 1 tablet every day by oral route. 06/16 completed Not Available Not Available Not Available metformin 500 mg tablet TAKE 1 TABLET TWICE A DAY BY ORAL ROUTE FOR 90 DAYS. active Not Available Not Available No t Available hydrocodo ne 7.5 mg-ibupro fen 200 mg tablet 10/31 completed Not Available Not Available Not Available azithromy sidney 250 mg tablet TAKE 2 TABLETS (500 MG) BY ORAL ROUTE ONCE DAILY FOR 1 DAY THEN 1 TABLET (250 MG) BY ORAL ROUTE ONCE DAILY FOR 4 DAYS 02/23 completed Not Available Not Available Not Available ibuprofen 800 mg tablet Take 1 tablet 3 times a day by oral route as needed. 07/15 completed Patient is not taking. Not Available Not Available Not Available Lidocaine Viscous 2 % mucosal solution Take 15 mL every 3 hours by oral route as needed. 09/07 completed Not Available Not Available Not Available hydrocodo ne 5 mg-acetam inophen 325 mg tablet 10/31 completed Not Available Not Available Not Available meloxicam 15 mg tablet 09/07 completed Not Available Not Available Not Available sumatript an 25 mg tablet Take 1 tablet every day by oral route as needed. 02/23 completed Not Available Not Available Not Available ondansetr on HCl 4 mg tablet 10/31 completed Not Available Not Available Not Available prednison e 20 mg tablet TAKE 3 TABLETS BY MOUTH ONCE DAILY FOR 5 DAYS 09/18 completed Not Available Not Available Not Available penicilli n V potassium 500 mg tablet 01/27 completed Not Available Not Available Not Available acetamino phen 300 mg-codein e 30 mg tablet Take 1 tablet every 6 hours by oral route as needed. 09/07 completed Not Available Not Available Not Available chlorthal idone 25 mg tablet Take 1 tablet every day by oral route. 02/23 completed Not Available Not Available Not Available hydrocodo ne 10 mg-acetam inophen 325 mg tablet TAKE 1 TAB BY MOUTH EVERY 6 HOURS NEEDED FOR MODERATE OR MORE SEVERE PAIN FOR UP TO 5 DAYS. 05/18 completed Not Available Not Available Not Available aspirin 81 mg tablet,de layed release TAKE 1 TABLET BY MOUTH EVERY DAY 07/15 completed Patient is not taking. Not Available Not Available Not Available tramadol 50 mg tablet 03/14 completed Not Available Not Available Not Available ketorolac 30 mg/mL (1 mL) injection solution Inject 1 mL every 6 hours by intramus cular route. 11/17 completed Not Available Not Available Not Available amoxicill in 875 mg tablet Take 1 tablet every 12 hours by oral route for 10 days. 10/31 completed Not Available Not Available Not Available tamsulosi n 0.4 mg capsule TAKE 1 CAPSULE BY MOUTH EVERY DAY 07/30 completed Not Available Not Available Not Available benzonata te 100 mg capsule 10/31 completed Not Available Not Available Not Available hydrocodo ne 7.5 mg-acetam inophen 325 mg tablet TAKE 1 TABLET BY MOUTH EVERY 6 HOURS NEEDED FOR PAIN CONTROL 09/18 completed Not Available Not Available Not Available naproxen sodium 550 mg tablet 10/31 completed Not Available Not Available Not Available metformin 1,000 mg tablet Take 1 tablet twice a day by oral route. 2024 active Not Available Not Available Not Avai jordi clotrimaz ole-betam ethasone 1 %-0.05 % topical cream 09/07 completed Not Available Not Available Not Available lisinopri l 10 mg tablet TAKE 1 TABLET BY MOUTH EVERY DAY active Not Available Not Available No t Available losartan 25 mg tablet 09/18 completed Not Available Not Available Not Available omeprazol e 20 mg capsule,d elayed release Take 1 capsule every day by oral route at bedtime. 09/18 completed Not Available Not Available Not Available diclofena c sodium 75 mg tablet,de layed release 05/25 completed Not Available Not Available Not Available norethind rah acetate 5 mg tablet Take 1 tablet 3 times a day by oral route for 30 days. 2024 active Not Available Not Available Not Avai lablizzeth metoprolo l succinate ER 25 mg tablet,ex tended release 24 hr TAKE 1 TABLET BY MOUTH EVERY DAY 06/14 completed Patient is not taking. Not Available Not Available Not Available methylpre dnisolone 4 mg tablets in a dose pack take as directed 11/17 completed Not Available Not Available Not Available losartan 100 mg tablet TAKE 1 TABLET BY MOUTH EVERY DAY active Not Available Not Available No t Available fluticaso ne propionat e 50 mcg/actua tion nasal spray,gurwinder pension 02/23 completed Not Available Not Available Not Available naproxen 500 mg tablet TAKE 1 TABLET (500 MG TOTAL) BY MOUTH 2 (TWO) TIMES A DAY WITH MEALS 07/23 completed Patient is not taking. Not Available Not Available Not Available amoxicill in 875 mg-potass ium clavulana te 125 mg tablet TAKE 1 TABLET BY MOUTH EVERY 12 HOURS FOR 5 DAYS 08/19 completed Not Available Not Available Not Available cyclobenz aprine 5 mg tablet TAKE 1 TABLET BY MOUTH 3 (THREE) TIMES A DAY NEEDED (TAKE DIRECTED TO RELAX MUSCLES) 07/15 completed Patient is not taking. Not Available Not Available Not Available Chlorasep tic Throat [place] 1.4 % aerosol Take 1 spray 3 times a day by mucous route as needed. 02/23 completed Not Available Not Available Not Available Nexplanon 68 mg subdermal implant Inject 1 implant by subcutan eous route. 2023 active Not Available Not Available Not Avai lable 28 mg iron-800 mcg tablet TAKE 1 TABLET BY MOUTH EVERY DAY 2023 active Patient is not taking. Not Available Not Available Not Available Blisovi 24 Fe 1 mg-20 mcg (24)/75 mg (4) tablet TAKE 1 TABLET BY MOUTH EVERY DAY 01/03 completed Not Available Not Available Not Available Ozempic 1 mg/dose (2 mg/1.5 mL) subcutane ous pen injector Inject 0.25 mg every week by subcutan eous route. 2020 active Not Available Not Available Not Avai lable Ozempic 0.25 mg or 0.5 mg (2 mg/1.5 mL) subcutane ous pen injector INJECT 0.25MG EVERY WEEK UNDER THE SKIN 12/06 completed Not Available Not Available Not Available Mounjaro 2.5 mg/0.5 mL subcutane ous pen injector active Not Available Not Available Not Available Vitals Date Recorded Body height Provider Name an d Address Organization Details Last Updated DateTime 07/15/2024 175.26 cm Gino Olivera MA [place] - [facility] 07/15/20 24 08:47:05 Date Recorded Body height Body mass index (BMI) Body weight Heart rate Respiratory rate Body temperature Systolic blood pressure Diastolic blood pressure Provider Name and Address Organization Details Last Updated DateTime 175.26 cm 66.9 kg/m2 994055. 34 g 80 /min 18 /min 98.3 [degF] 122 mm[Hg] 88 mm[Hg] Mary Jo West MA [facility] 4 09:22:37 Date Recorded Body height Body mass index (BMI) Body weight Body temperature Respiratory rate Heart rate Systolic blood pressure Diastolic blood pressure Provider Name and Address Organization Details Last Updated DateTime 5 175.26 cm 65.7 kg/m2 897312. 3 g 98.4 [degF] 16 /min 89 /min 130 mm[Hg] 81 mm[Hg] Gino Olivera MA [facility] 5 09:26:05 Date Recorded Body height Body mass index (BMI) Body weight Body temperature Heart rate Respiratory rate Systolic blood pressure Diastolic blood pressure Provider Name and Address Organization Details Last Updated DateTime 5 175.26 cm 66.3 kg/m2 033327. 67 g 98.3 [degF] 80 /min 18 /min 138 mm[Hg] 79 mm[Hg] Mary Jo West MA [facility] 5 15:14:27 Date Recorded Body height Body mass index (BMI) Body weight Body temperature Heart rate Respiratory rate Systolic blood pressure Diastolic blood pressure Provider Name and Address Organization Details Last Updated DateTime 5 175.26 cm 65.3 kg/m2 874886. 28 g 98.3 [degF] 80 /min 18 /min 130 mm[Hg] 80 mm[Hg] Mary Jo West MA [facility] 5 12:02:16 Social History Question Answer Notes LastModified by Organizat ion Details LastModified Time Tobacco Smoking Status Never Smoker DI Adhikari, [facility] 03/31/2017 09:52:52 What Is Your Level Of Alcohol Consumption? None Information not available 10/21/2019 What Is Your Level Of Caffeine Consumption? Moderate Soda And Coffee Information not available 05/29/2020 Are You Currently Employed? Yes Information not available 09/16/2022 Which Illicit Or Recreational Drugs Have You Used? Denies Information not available 10/21/2019 Do You Or Have You Ever Used E-cigarettes Or Vape? 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 09/17/2024 Information not available 09/17/2024 What Is Your Relationship Status? Single Information not available 09/16/2022 Do You Or Have You Ever Used Smokeless Tobacco? Never Used Smokeless Tobacco Information not available 05/29/2020 How Much Tobacco Do You Smoke? No Information not available 05/29/2020 Do You Use Any Illicit Or Recreational Drugs? No [email or web address] Information not available 06/14/2024 Has Tobacco Cessation Counseling Been Provided? Yes Information not available 08/19/2022 On What Date Was Tobacco Cessation Counseling Provided? 09/17/2024 Information not available 09/17/2024 How Many Years Have You Smoked Tobacco? 0 Information not available 05/29/2020 Sex: Female Functional Status None recorded. Mental Status None recorded. Family History Relationship Description Onset Age of this Age Resolved Age Notes LastModified by Organization Details LastModified Time Father Diabetes mellitus [email or web address] Not available 09/07 14:33:03 Sister Diabetes mellitus [email or web address] Not available 09/07 14:33:03 Maternal Aunt Malignant neoplasm of bone [email or web address] Not available 05/29 09:50:02 Maternal Aunt Malignant tumor of breast klortsma Not available 2021 15:45:17 Notes:06/14/24, 07/15/24, 08/11 02/02 Medical History Condition Response Coronary Artery Disease N Other N Atrial Fibrillation N High Blood Pressure N Thyroid Problems N Kidney or Bladder Problems N Depression N COPD N Blood Clots N GI Problems N Skin Problems N Anemia N Heart Attack (MO) N Diabetes N Anxiety Disorder N Muscle, Joint, or Bone Problems N Seizures/Epilepsy N Acid Reflux (GERD) N Cancer N Stroke N Allergies N Asthma N High Cholesterol N Hepatitis N Liver Disease N Headaches N Osteoporosis N Heart Failure N Gynecological History Statement/Question Response Flow Moderate Date of LMP 08/07/2024 On BCP's at Conception? N Menses Monthly N Date of Last Pap Smear Duration of Flow (days) 14 Age at Menarche 10 Current Control Method None LMP Approximate Obstetrics History GPAL:G 0 P 0 0 0 0 Immunizations Vaccine Type Date Status Note Provider Nam e and Address Organization Details Recorded Time Hep B, adolescent or pediatric 12/18/1998 completed SARAH HUTCHINS MD Attn: Accounting,[address] [facility], [place], [place], [address] [place] [address], [place] [facility] 07/30/2022 14:59:13 OPV 02/24/1990 completed SARAH HUTCHINS MD Attn: Accounting,[address] [facility], [place], [place], [address] [place] [address], [place] [facility] 07/30/2022 14:59:13 DTP 1988 completed SARAH HUTCHINS MD Attn: Accounting,204 1 [facility], [place], [place], [address] [place] [address], [facility] - [facility] 07/30/2022 14:59:13 DTP 02/24/1990 completed SARAH HUTCHINS MD Attn: Accounting,204 1 [facility], [place], [place], [address] [place] [address], [place] [facility] 07/30/2022 14:59:13 OPV 1988 completed SARAH HUTCHINS MD Attn: Accounting,204 1 [facility], [place], [place], [address] [place] [address], [place] [facility] 07/30/2022 14:59:13 DTP 1988 completed SARAH HUTCHINS MD Attn: Accounting,204 1 [facility], [place], [place], [address] [place] [address], [place] [facility] 07/30/2022 14:59:13 Hep B, adolescent or pediatric 02/21/1999 completed SARAH HUTCHINS MD Attn: Accounting,204 1 [facility], [place], [place], [address] [place] [address], [place] [facility] 07/30/2022 14:59:13 OPV 12/03/1993 completed SARAH HUTCHINS MD Attn: Accounting,204 1 [facility], [place], [address] [place] [address], [place] [facility] 07/30/2022 14:59:13 MMR 08/21/1989 completed SARAH HUTCHINS MD Attn: Accounting,[address] [facility] , [place], [address], [place] [facility] 07/30/2022 14:59:13 DTP 1988 completed SARAH HUTCHINS MD Attn: Accounting,[address] [facility] , [place], [address], [place] [facility] 07/30/2022 14:59:13 MMR 12/03/1993 completed SARAH HUTCHINS MD Attn: Accounting,[address] [facility], [place], [address], [place] [facility] 07/30/2022 14:59:13 Hep B, adolescent or pediatric 07/16/1999 completed SARAH HUTCHINS MD Attn: Accounting,[address] [facility], [place], [address], [facility] - [facility] 07/30/2022 14:59:13 OPV 1988 completed SARAH HUTCHINS MD Attn: Accounting,[address] [facility], [place], [address], [place] [facility] 07/30/2022 14:59:13 DTP 12/03/1993 completed SARAH HUTCHINS MD Attn: Accounting,[address] [facility], [place], [address], [place] [facility] 07/30/2022 14:59:13 Tdap 03/18/2022 completed Jonnie Morrison MD Attn: Accounting,[address] [facility], [place], [address], [place] [facility] 03/20/2022 08:59:43 Past Encounters Encounter ID Performer Location Encounter Start Date Encounter Closed Date Diagnosis/Indication Diagnosis SNOMED-CT Code Diagnosis ICD10 Code Diagnosis Note [id number] MIRNA Gao (LA[facility] 205) [address] [facility] [address] [place] [address] 03/31/2017 09:42:52 03/31/2017 12:25:12 Adult health examination 923200995 Z00.00 Counseled on the importance of healthy diet and exercise for weight loss. Fasting lab work. Advised adequate calcium intake through dairy and dark leafy vegetables . Adequate hydration and decrease soda intake. will obtain labs from pre surgical labs Morbid obesity 613435612 E66.01 Counseled on weight loss-encou rage heart healthy diet and increasing exercise-p ortion control, decreasing processed foods History of cholecystectomy 642097578 Z90.49 will keep f/u appointmen t with surgeon [id number] MIRNA Gao ([facility]) [address] [place] [address] 10/13/2017 14:09:43 10/14/2017 14:57:29 Sore throat 328964863 J02.9 Pharyngitis 262639026 J0 2.9 Counseled on pharyngiti s-Amoxicil miky BID x 10 days. Warm salt water gargles as needed. Tylenol/Ib uprofen as needed. Throw away toothbrush after 24 hours on antibiotic . Do not share food or drinks with anyone. Good hand washing [id number] MIRNA Gao ([facility]) [address] [facility] [place] [address] 10/31/2017 15:13:09 11/03/2017 16:47:15 Pharyngitis 762585637 J02.9 Counseled on pharyngiti s-will test for mono. Warm salt water gargles as needed. Tylenol/Ib uprofen as needed. Do not share food or drinks with anyone. Good hand washing [id number] MIRNA Gao [address] [place] [address] 02/25/2018 15:08:55 03/02/2018 11:48:09 Pain in right knee 8962923567 57639 M25.561 Counseled on knee pain, testing and medication -Brain wrap, ice, Ibuprofen- t #3 for breakthrou gh pain and elevate and referral to orthopedic s [id number] MIRNA Gao 14 [address] [place] [address] 09/07/2019 14:07:25 09/08/2019 12:15:58 Lumbago with sciatica 779156247 M54.42 ? pirifimis syndrome-m edications discussed- f/u 2-4 weeks if no improvemen t for referral to PT Depression screening 171 218013 Z13.31 [id number] Mai Pruett 14 [address] [facility] [place] [address] 10/21/2019 11:29:39 11/11/2019 12:56:52 Essential hypertension 33543462 I10 BP 164 / 102. 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 Neuro intact. Labs. Start Chlorthali done. EKG next visit. RTC 1mo. Migraine without aura 56 803996 G43.009 BP elevated. Ibuprofen not really helping. Neuro intact. Ketorolac in clinic. Try Imitrex PRN. [id number] Mai Do [address] [facility] [place] [address] 11/18/2019 08:06:55 11/19/2019 09:03:39 Essential hypertension 12272127 I10 10/2019:BP 164 / 102. 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 Neuro intact. Labs. Start Chlorthali done. EKG next visit. RTC 1mo. 11/2019: Home BP is 134 / 80, lost about 10 pounds via lifestyle changes. Continue Chlorthali done. RTC 3mo. Migraine without aura 56 855517 G43.009 10/2019:BP elevated. Ibuprofen not really helping. Neuro intact. Ketorolac in clinic. Try Imitrex PRN. 11/2019: Imitrex helped. Lost weight. BP better. [id number] Mai Do [address] [place] [address] 01/28/2020 14:15:06 01/29/2020 15:40:37 Acute pharyngitis 796462434 J02.9 1 week. Seen in urgent care. Per pt, strept / flu negative. Covid negative. Couldn't tolerate PCN VK. Try Z-pack. [id number] Mai Do [address] [facility] [place] [address] 02/24/2020 09:08:25 02/25/2020 08:36:32 Gastroesophageal reflux disease without esophagitis 236292267 K21.9 No red flags.Smal ler frequent meals, not eating 3 hours before bedtime. Try harder on weight loss.PPI for 3 months and see. Consider H pylori. Essential hypertension 99584194 I10 10/2019:BP 164 / 102. 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 Neuro intact. Labs. Start Chlorthali done. EKG next visit. RTC 1mo. 11/2019: Home BP is 134 / 80, lost about 10 pounds via lifestyle changes. Continue Chlorthali done. RTC 3mo. 02/2020: Home BP < 140/90 without medication (she stopped due to leg cramps). Will hold mediation at this time. Continue to monitor. RTC 3mo. [id number] Karl Pruett 14 IM [address] [facility] [place] [address] 05/25/2020 08:25:31 05/26/2020 09:02:56 Gastroesophageal reflux disease without esophagitis 354521338 K21.9 Essential hypertension 37110739 I10 Off BP meds since February due to BP running normal and weight loss [id number] MD Nicko Victoria 14 IM [address] [facility] [place] [address] 05/29/2020 09:40:21 05/30/2020 09:35:03 Pre-surgery evaluation 738613545 Z01.818 Plantar fasciitis 077197 003 M72.2 Morbid obesity 561227829 E66.01 [id number] MD Nicko Chavez 14 IM [address] [facility] [place] [address] 05/18/2021 14:43:09 05/21/2021 11:44:06 Essential hypertension 73599603 I10 -BP not elevated in office today; BP <140/80 and patient has not been taking BP medication - Patient takes BP at home but unsure of sizing of her BP cuff.-will continue to monitor each visit Snoring 82577628 R06.83 -history of snoring and fatigue on waking. 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 pre-diabet es range 10/20/20 Fatigue 85339345 R53.83 Previously normal range but could be a cause of patient symptoms. [id number] MD Nicko Rubin 14 [address] [facility] [place] [address] 09/18/2021 15:32:40 09/19/2021 10:49:03 Increased frequency of urination 970794348 R35.0 UA negative for nitrite, leukocyte esterase. Positive for trace blood. Not consistent with UTI. Kidney stone 41983759 N2 0.0 Patient with right 4mm kidney stone diagnosed in [facility] ED in mid-. Patient with family history of opioid addiction and did not fill medication s from ED due to this. Will prescribe NSAID and Flomax to help with pain and passing the stone. [id number] MD Nicko Victoria 14 [address] [facility] [place] [address] 03/18/2022 15:32:47 03/20/2022 16:06:22 Tuberculosis screening 794565155 Z11.1 Patient to return to have test read. History an d physical examination, pre-employment 317758798 Z02.1 Patient form for work completed. Essential hypertension 66710112 I10 Elevated in 2 consecutiv e visits. will start low dose BRAIN.-will continue to monitor each visit Administra tion of diphtheria, pertussis, and tetanus vaccine 040173907 Z23 Due for vac for work. [id number] MD Nicko ROMAN 14 [address] [facility] [place] [address] 07/30/2022 14:21:45 07/31/2022 10:15:29 Upper respiratory infection 84493243 J06.9 Pt tested pos strep. Associated s/s: productive cough, congestion , and chest pressure- recommende d alternatin g tylenol/ib uprofen every 4hrs for the next 1-2 wks- suggested flonase daily for the next week and afrin 3x/daily for no more than 3 days.- instructed to go to ED if worsening SOB, inability to breath, CP, or pleuritic CP occurs. Streptococ yoni sore throat 24340160 J02.0 continue as above.send augmentin BID for 5 days [id number] MD Nicko ROMAN 14 [address] [facility] [place] [address] 08/19/2022 10:20:48 08/22/2022 11:44:15 Essential hypertension 79527405 I10 --BP 160/100 today-- restart losartan and titrated to max dose prior to adding another medication .-will continue to monitor each visit Morbid obesity 269816524 E66.01 -- A1C 6.0--BMI-6 2.2-- patient recently got gym membership ; planning to start exercising .-- restarted on ozempic- patient previously was up to 1mg dose-- patient will have a dedicated weight management visit in 1 month Obesity 606957703 E66.9 Chest pain on exertion 35817849 R07.89 --DDX- myocarditi s, pleuritis, MSK, GERD, ischemia, less likely PNA, PE, MO, esophagiti s, zoster-- chest pain- Christine and Alcon Chest Pain Prediction Rule-typic al chest pain in age 30-39: 26% likelihood in women =intermedi ate risk-- symptoms provoked by activity, relieved with rest, located L chest/retr osternal; given the nature and intermedia te risk will want to rule out cardiac cause of pain.with stress test-- given previous strep infection possible bacterial myocarditi s as cause of pain will get EKG Prediabetes 827140196 R7 3.03 -- POC A1C 6.0 in office-- patient restarted on ozempic .25-- likely to improve with weight loss; lifestyle changes discussed will f/u in 1 month [id number] MD Nicko ROMAN 14 [address] [facility] [address] [place] [address] 09/16/2022 10:40:43 09/17/2022 11:07:24 Morbid obesity 370726189 E66.01 -- A1C 6.0--BMI-6 2.2-- will defer exercise until patient is seen by cardiology -- restarted on ozempic- tolerating well-- discussed using an anant to monitor daily calorie intake. Will get average yoni per day. Goal is to decrease yoni as tolerated by 300 yoni. Discussed initial goal of 1800 yoni per day but will slowly decrease total yoni per day as tolerated to meet that goal. Family his tory of breast cancer 861165916 Z80.3 -- several family members with breast cancer discovered at stage 4. Shared decision making with patient and she would like a screen.-- she is unsure if family members have had genetic testing. Essential hypertension 18533649 I10 --BP 152/100 today,-- will increase losartan to 100 mg-- follow up in 1 month Reproducti ve care management 518356051 Z31.9 -- not currently trying to get . Discussed need to change BP med if she gets or decides to pursue . Sleep apnea 22647408 G47 .30 -- possible sleep apnea-- BMI- 62.5-- daytime somnolence -- poor quality sleep-- concern for ANKUR Myocardial ischemia 4147 07942 I25.9 - Patient completed stress test with noted ST depression in inferior leads.- follow up with cardiology pending- Lipid panel ordered today (added as patient case) , concern for familial hyperchole sterolemia given young age and cardiovasc ular disease [id number] MD Nicko Rubin 14 IM [address] [facility] [address] [place] [address] 12/06/2022 09:20:20 12/10/2022 11:53:37 Morbid obesity 390818722 E66.01 -- 13 lb weight loss over the past 2 months-- d/c ozempic- stated she was constipate d with use-- BMI-60.7-- using an anant to monitor daily calorie intake- down to 1800 yoni per day. 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 She does not desire to get at this time.-- If patient would like to get then metformin can help regulate periods [id number] MD Nicko Ferris 14 IM [address] [facility] [place] [address] 01/03/2023 09:42:04 01/10/2023 13:20:57 Abdominal pain 86752997 R10.9 DDX ovarian cyst rupture, diverticul itis, UTICulture from ER grew less than 100,000 colonies of any specific organismDi scussed that even if she does have diverticul itis, we can continue to monitor without antibiotic s so long as she is stableFor now we are just going to watch how she does over the next few days and if the pain is persistent next week we will check CT abdomen and pelvis versus empiric treatment to cover both UTI and ndiverticu litis Polycystic ovary syndrome 291140856 E28.2 Patient would like to do quarterly medroxypro gesteroneW e will stop control pills and send RxShe is aware of other options such as putting him on a higher dose control pill, IUD, trial of metforminw e are hopeful that with continued weight loss she may start to ambulate and menstruate more normally [id number] MD Nicko ROMAN 14 IM [address] [facility] [address] [place] [address] 03/14/2023 08:53:52 04/07/2023 15:40:10 Morbid obesity 812847016 E66.01 -- BMI-60.9-- 5 lb weight gain since the last visit but overall down 11 lbs. Declines medication or weight loss sx.-- d/c ozempic because stated she was constipate d with use-- Will return to using anant to monitor daily calorie intake -initial goal 2000 per day.-- still making progress; exercise capacity is greatly increased since starting lifestyle changes.-- F/U in 1 month for weight loss visit Abnormal u terine bleeding 2399164601 9100 N93.9 -- no period in 2 months-- prev prescribed medroxypro gesterone. -- Will start for a 10 day treatment to hopefully shed uterine lining. Plan to treat every 3 months if patient does not have a period on her own. Obstructiv e sleep apnea syndrome 32885392 G47.33 -- patient newly diagnosed with ANKUR stated she cannot tolerate standard CPAP face mask and would like alternativ e options [id number] MD Nicko Chavez 14 IM [address] [facility] [address] [place] [address] 04/15/2023 11:51:38 04/16/2023 10:24:34 Sore throat 999580320 J02.9 Strep test negative. 2 day hx of right ear pain, cough, diarrhea, sore throat. Throat with white exudate but strep negative. Given high suspicion of strep will treat. Will order mono test but will have to be done at the lab. F/u with Dr. Villa as needed. [id number] MD Nicko Boucher 14 IM [address] [facility] [place] [address] 06/14/2024 08:53:54 06/25/2024 16:20:25 Morbid obesity 465332909 E66.01 Prediabetes 847958491 R7 3.03 - last a1c in 09/02 of 6, will recheck at this time- if patient is still in the prediabete s-diabetes range will start her on metform which will also help with insulin resistance of PCOS and injectable to combat diabetes and help with weight loss Polycystic ovary syndrome 995531124 E28.2 - pt has clinical diagnosis of PCOS based on hyperandro genism and anovulatio n- desires period regulation at this time, recommend implantabl e device to which patient agrees- will order nexplanon at this time and pt will be scheduled in procedure clinic Obstructiv e sleep apnea syndrome 61591869 G47.33 pt has previous dx but never got fitted for CPAPwill send new referral at this time Essential hypertension 75174878 I10 - uncontroll ed HTN, pt asymptomat ic at this time- will restart losartan 100mg at this time- gave pt BP log to keep a record and will have phone visit in 4 weeks to reassess [id number] MD Nicko Boucher 14 IM [address] [facility] [place] [address] 07/15/2024 08:45:23 07/28/2024 15:44:17 Essential hypertension 59739811 I10 - hx uncontroll ed HTN, pt asymptomat ic at this time suspect due to obesity- started losartan 100mg with no issues at this time- 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 picking 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 BP cuff to monitor at home, will try to order one for her at this time Morbid obesity 471590180 E66.01 Type 2 anthony betes mellitus 79186223 E11.9 - A1c of 7.2, will tolerating initiation of metformin was not fully covered for mounjaro will try to reorder if not fully covered again will try ozempic or wegovy- encouraged intense lifestyle modificati ons in addtion to medication [id number] MD Nicko Rubin 14 IM [address] [facility] [place] [address] 07/23/2024 09:15:53 08/05/2024 09:21:51 Insertion of subcutaneous contraceptive 064184562 Z30.46 Tolerated procedure well. See procedure details. [id number] MD Nicko Boucher 14 IM [address] [facility] [place] [address] 08/26/2024 09:08:20 09/17/2024 10:46:22 Abnormal uterine bleeding 0092973330 9100 N93.9 - pt with significan t amounts of blood loss via vagina, unclear etiology at this time- unable to do pelvic exam due to discomfort , pt has never had a pap smear- will send in [facility] one at this time, TRC in 1 week for further manangemen t [id number] MD Nicko Boucher 14 [address] [facility] [place] [address] 09/02/2024 15:02:29 09/17/2024 11:24:33 Screening for malignant neoplasm of cervix 057742971 Z12.4 Abnormal u terine bleeding 2587560575 9100 N93.9 - pt with significan t amounts of blood loss via vagina, unclear etiology at this time- has since slowed down without further interventi on however nexplanon removed today- will continue to monitor in this regard and can consider lever tender referral is bleeding reoccurs [id number] MD Nicko Boucher 14 [address] [facility] [place] [address] 09/17/2024 11:53:26 10/11/2024 09:25:13 Morbid obesity 194444677 E66.01 Healthy lifestyle encouraged including regular exercise of at least 150min per week, diet rich in plant based foods and low in added sugars, processed carbohydra ritu, and high salt foods. Type 2 anthony betes mellitus 39590855 E11.9 Increase metformin to 1000 mg BID. Follow up in 1 mo. Monjauro was not improved. Cosider alternativ e GLP. Health Concerns Section Related Observation LastModified by Organization Detai ls LastModified Time None Recorded Concern Status LastModified by Organization Details LastModified Time None Recorded Advance Directives Directive None Recorded Payers Encounter Date Sequence Insurance Name Policy Number Policy Gonzales Covered Member ID Gonzales Member ID Guarantor Name 07/15/2024 1 [facility] [id number] Betzaida Amirah [id number] Betzaida Amirah 07/23/2024 1 [facility] [id number] Betzaida Amirah [id number] Betzaida Amirah 08/26/2024 1 [facility] [id number] Betzaida Amirah [id number] Betzaida Amirah 09/02/2024 1 [facility] [id number] Betzaida Amirah [id number] Betzaida Amirah 09/17/2024 1 [facility] [id number] Betzaida Amirah [id number] Betzaida Amirah Notes Date Note Type Note Provider Name and Address Organization Details Recorded Time 07/15/2024 text/html I conducted this encounter from the office via secure, live, voice conference The patient's name, , were confirmed prior to initiation of phone encounter. 34 yo F with PMH of obesity, HTN, ANKUR, prediabetes presents today for follow up. Today's concerns: - would like to discuss more weight loss options as she was denied injectable, specifically phentermine - is tolerating initiation of BP meditations Brian Grijalva MD Attn: Accounting,[address] [place], [address], [facility] 07/26/2024 07:46:42 07/23/2024 text/html Betzaida is a 34 y/ o F who presents to the clinic for procedure clinic for nexplanon insertion. Madiha Bernard MD Attn: Accounting,[address] [facility], [place], [address], [facility] 08/03/2024 12:16:28 08/26/2024 text/html 34 yo F with PMH of obesity, HTN, ANKUR, prediabetes presents today for follow up. Today's concerns: - pt had nexplanon placed on Jul and has been bleeding heavily since the , uses about 6-8 pads/day and they are full to the brimhas been feeling excessively tired and having bad cramps takes naproxen and is response along with the heating pad, some nausea without vomiting, no fevershas never had a pap smear - had a similar episode when she started the pill about a year and a half ago, resolved with stopping the pill however would like to stay on the nexplanon at this time Brian Grijalva MD Attn: Accounting,[address] [place], [address], [facility] 09/16/2024 23:30:37 09/02/2024 text/html 34 yo F with PMH of obesity, HTN, ANKUR, prediabetes presents today for follow up. Today's concerns: - pt had nexplanon placed on Jul and had been bleeding heavily since the , uses about 6-8 pads/day and they are full to the brimhas been feeling excessively tired and having bad cramps takes naproxen and is response along with the heating pad, some nausea without vomiting, no fevershas never had a pap smear- pt was prescribed norethindrone however was unable to afford the copay and didn't pick it up- states bleeding has slowed down and now she is just spotting- wants nexplanon out today Brian Grijalva MD Attn: Accounting,[address] [place], [address], [facility] 09/17/2024 00:30:53 09/17/2024 text/html Betzaida is a 34 y/ o F here for diabetes follow up.Has been taking metformin 500 mg and working on lifestyle changes. Aron was not approved by insurance. No other concerns today. Brian Grijalva MD Attn: Accounting[address] [place], [address], [facility] 10/08/2024 08:45:48 OBGyn Episode No OBEpisode recorded.
--- OUTSIDE RECORDS SUMMARY | 2024-11-11 16:52 | XMS_ITS | CONTINUITY OF CARE DOCUMENT ---
Author Name juve an Address Unknown Organization [facility] Address [address] [place] [address] Phone [phone] Care Team Providers Care Organ Recovery Coordinator Name Role Phone Milind De Leon MD Unavailable [phone] Milind De Leon MD Unavailable [phone] INSURANCE PROVIDERS Payer name Policy type / Coverage type [place] red libertarian ID [place] [employer] [employer] [id number]
--- OUTSIDE RECORDS SUMMARY | 2024-11-11 16:52 | XMS_ITS | Clinical Summary ---
Author Organization [facility] Address [address] [place] [address] Care Team Providers Care Second Crusher Name Role Phone Oscar Villa MD Primary [...] gallbladder with acute cholecystitis without obstruction 04/09/20172016 Surgical History Surgery Date Site/Laterality Comments CHOLECYSTECTOMY 03/25/2017 Laparoscopic cholecystectomy ORIF WRIST FRACTURE repair fractured left arm GALLBLADDER SURGERY Family History Medical History Relation Name Comments Diabetes Father Diabetes Sister Relation Name Status Comments Father Alive Sister Alive Social History Tobacco Use Types Packs/Day [...] on file Legal Sex Female 5:42 PM SERVICE WRITER Gender Identity Not on file Sexual Orientation Not on file Obstetrics History Last Filed Vital Signs Vital Sign Reading Time Taken Comments Blood Pressure 162/94 06/18/2023 12:24 PM SERVICE WRITER Pulse 77 06/18/2023 12:24 PM SERVICE WRITER Temperature 36.4 C (97.5 F) 06/18/2023 9:18 AM SERVICE WRITER Respiratory Rate 16 06/18/2023 12:24 PM SERVICE WRITER Oxygen Saturation 98% 06/18/2023 12:24 PM SERVICE WRITER Inhaled Oxygen Concentration - - Weight 179.2 kg (395 lb) 06/18/2023 9:18 AM SERVICE WRITER Height 175.3 cm (5' 9 ) 06/18/2023 9:18 AM SERVICE WRITER Body Mass Index 58.33 06/18/2023 9:18 AM SERVICE WRITER Plan of Treatment Health Maintenance Due Date Last Done Comments Cervical Cancer Screening 1988 Depression Screening 1988 Hepatitis C Screening 1988 Varicella Vaccines (1 of 2 - 13+ 2-dose series) 2001 Regular Well Visit/Exam 18-64 2006 Influenza Vaccine (#1) 2024 DTaP/Tdap/Td Vaccine (7 - Td or Tdap) 03/18/2032 03/18/2022, 12/03/1993, 02/24/1990, Additional history exists Hepatitis B Screening Completed 07/16/1999 , 02/21/1999, 12/18/1998 HPV Vaccines Aged Out No longer eligi ble based on patient's age to complete this topic Pneumococcal vaccine <65 Aged Out No longer eligible based on patient's age to complete this topic Insurance [facility] [employer] [facility] H[facility]/PPO Address: [facility] [id number] [place] [address] [facility] [employer] [facility]/PPO Address: [facility] [id number] [place] [address] Care Teams Second Crusher Relationship Specialty Start Date End Date Oscar Villa MD [address] [place] [address] [address] [address] PCP - General 08/19/21
--- OUTSIDE RECORDS SUMMARY | 2024-11-11 16:52 | XMS_ITS | Clinical Summary ---
Author Organization [facility] Address [address] [place] [id number] Care Team Providers Care Department Head Name Role Phone Karl Garg Primary Care Provider [phone] Allergies No known active allergies Medications aspirin (ECOTRIN EC) 81 mg Tablet, Delayed Release (E.C.) Take 81 mg by mouth. 05/31/2020 Active omeprazole (PriLOSEC) 20 mg Capsule, Delayed Release(E.C.) TK 1 C PO QD HS 02/24/2020 Active Active Problems No known active problems Social History Tobacco Use Types Packs/Day Years Used Date Smoking Tobacco: Never Assessed Comments No Sex and Gender Information Value Date Recorded Sex Assigned at Not on file Legal Sex Female 10:05 AM PULP ROLLER Gender Identity Not on file Sexual Orientation Not on file Last Filed Vital Signs Vital Sign Reading Time Taken Comments Blood Pressure 125/82 08/11/2020 11:11 AM PULP ROLLER Pulse - - Temperature 36.7 C (98 F) 08/11/2020 11:11 AM PULP ROLLER Respiratory Rate 18 08/11/2020 11:11 AM PULP ROLLER Oxygen Saturation 97% 08/11/2020 11:11 AM PULP ROLLER Inhaled Oxygen Concentration - - Weight 186 kg (410 lb) 08/11/2020 11:11 AM PULP ROLLER Height 175.3 cm (5' 9 ) 08/11/2020 11:11 AM PULP ROLLER Body Mass Index 60.55 08/11/2020 11:11 AM PULP ROLLER Plan of Treatment Health Maintenance Due Date Last Done Comments DTAP/TDAP/TD VACCINES (1 - Tdap) 2007 HEPATITIS B VACCINES (1 of 3 - 19+ 3-dose series) 2007 PAP SMEAR 2009 CERVICAL CANCER SCREENING 2018 HPV/Cotest (30-65) 2018 PAP SMEAR 2018 INFLUENZA VACCINE (#1) 2024 HPV VACCINES Aged Out No longer eligi ble based on patient's age to complete this topic PNEUMOCOCCAL VACCINE 0-49 YEARS Aged Out No longer eligible based on patient's age to complete this topic Insurance [employer] Care Teams Department Head Relationship Specialty Start Date End Date Karl Garg, ANP [address] [place] [address] Dr KHAN [address] [place] [phone] PCP - General 08/11/20
--- OUTSIDE RECORDS SUMMARY | 2024-11-11 16:54 | XMS_ITS | CONTINUITY OF CARE DOCUMENT ---
Author Name juve an Address Unknown Organization [facility] Address [address] [place] [address] Phone [phone] Care Team Providers Care Documentation Specialist Name Role Phone Milind De Leon MD Unavailable [phone] Milind De Leon MD Unavailable [phone] INSURANCE PROVIDERS Payer name Policy type / Coverage type [place] red constitution party ID [id number] [id number]
[2024-11-11 17:00] VITALS: BP 151/83; PULSE 85; RESP 20; TEMP 36.4; O2SAT 100
--- NOTE | 2024-11-11 17:00 | ED_ITS ---
HPI - Back Pain/Injury General Chief Complaint: Back Pain/Injury Stated Complaint: Back Pain Time Seen by Provider: 11/11/24 17:04 Source: patient, RN notes reviewed and old records reviewed Mode of arrival: ambulatory Limitations: no limitations History of Present Illness HPI Narrative: 34-year-old female presents to the [facility] with left lower back pain. Patient states on Friday, 3 days ago, was getting out of a car when she felt a sharp pain in her left low back. Has been taking Advil, using topicals. No midline tenderness. No traumas to the area. No loss retention bowel bladder. Denies abdominal pain Patient states the pain is worse when she changes positions. Related Data Home Medications ?Medication ?Instructions ?Recorded ?Confirmed ?Last Taken ?Type losartan 100 mg tablet mg 11/11/24 Unknown History metformin 500 mg tablet mg 11/11/24 Unknown History Allergies Allergy/AdvReac Type Severity Reaction Status Date / Time No Known Allergies Allergy Verified 11/11/24 17:07 Review of Systems 2 Review of Systems: All systems reviewed & are unremarkable except as noted in HPI and below Constitutional: Constitutional: Reports no additional constitutional complaints ENT: Reports system reviewed and no additional complaints, except as documented Cardiovascular: Cardiovascular: Reports no additional cardiovascular complaints, Denies chest pain and Denies dyspnea Respiratory: Respiratory: Reports no additional respiratory complaints, Denies chest congestion, Denies cough and Denies dyspnea Musculoskeletal: Musculoskeletal: Reports as per HPI and Reports back pain (Left lower) Integumentary/Breasts: Skin/Breast: Reports system reviewed and no additional complaints, except as docu PMFSH Past Medical History Medical History (Updated 11/11/24 @ 17:12 by Ashanti Kaur APRN) Knee injury Surgical History Surgical History History of cholecystectomy 2017 Family History Family History Other Diabetes mellitus Family history of seizure disorder Social History Social History Smoking status: Never smoker Second hand tobacco smoke exposure: No Alcohol intake: never Substance use: never Living arrangements: with family Occupation/Education: occupation Gender identity (if verbalized by the patient): Female Comments At the time of my signature, I reviewed and agree with the nursing past medical, surgical, social, and family history. There is no relevant family history pertinent to the patient complaint. Exam 2 Const: General: cooperative, healthy appearing, comfortable, no acute distress, well developed, alert and well nourished Nutritional Appearance: w ell nourished and obese Orientation/consciousness: patient oriented x3 L imitations: no limitations HENMT: Head: normal to inspection Eyes: General: appearance normal, both eyes and all related structures A lignment and Position: alignment normal Neck: Neck: normal visual inspection, full ROM, no lymphadenopathy and no meningeal signs Chest: Chest palpation & inspection: normal inspection of the chest Resp: Effort & Inspection: normal respiratory effort and able to speak in complete sentences Cardio: Rate: regular rate Back/Spine/Pelvis: Back: No no CVA tenderness, No erythema, No ecchymosis and back tenderness Cervical Spine: normal cervical lordosis Thoracic/Lumbar Spine: paraspinal muscle tenderness on the left in the lower lumbar, No thoracic spinal tenderness and No lumbar spinal tenderness Pelvis: no pain with anterior-posterior compression, no pain with lateral compression, no buttock ecchymosis and no buttock tenderness Back/spine/pelvis image: 1. Patient reports pain. No midline tenderness. No loss retention of bowel or bladder. Walks with normal gait. Pain increases with changing of position. Skin: General skin exam: normal color and no rashes or lesions noted Neuro: General: patient oriented x3, gait normal, moves all extremities and no meningeal signs Cognition (Neuro): normal cognition Speech: normal speech Gait exam (Neuro): Normal gait present Extrem: General: normal to inspection, full ROM, capillary refill normal and normal gait Psych: Appearance: grossly normal and well kempt Mental Status: mental status grossly normal Speech and movement: Normal speech and movement present and Clear speech present Affect: normal affect Attitude: cooperative Course Course Level of Care: Express Care Visit Vital Signs Vital signs: Vital Signs Temperature 97.6 F 11/11/24 17:00 Pulse Rate 85 11/11/24 17:00 Respiratory Rate 20 11/11/24 17:00 Blood Pressure 151/83 H 11/11/24 17:00 Pulse Oximetry 100 11/11/24 17:00 Oxygen Delivery Room Air 11/11/24 17:00 Temperature 97.6 F 11/11/24 17:00 Pulse Rate 85 11/11/24 17:00 Respiratory Rate 20 11/11/24 17:00 Blood Pressure 151/83 H 11/11/24 17:00 Pulse Oximetry 100 11/11/24 17:00 Oxygen Delivery Room Air 11/11/24 17:00 Reviewed MDM - Back Pain/Injury MDM Narrative Medical decision making narrative: Patient sitting in exam room. Nontoxic, vitals are stable. Patient with left lower lobe back pain, no trauma. No midline tenderness. No loss retention of bowel or bladder. No saddle anesthesia. Patient with low back strain most likely, will muscle relaxer, anti-inflammatory, encourage patient to follow-up with primary care provider if pain persists Discharge instructions reviewed with patient, as well as provided in writing per nursing staff. The instructions also include specific and strict return/GO TO THE ER as well as f/u information. All questions have been answered, and the patient deny any further questions with discharge and discharge plan. Some parts of this dictation were generated by voice recognition software and may contain typographical and/or grammatical inaccuracies. Differential Diagnosis Differential diagnosis: Likely lumbar radiculopathy, sciatica and strain of lumbar region Critical Care Time Critical Care Time Critical Care Time: No Discharge Plan Discharge Clinical Impression: Strain of lumbar region Qualifiers: Encounter type: initial encounter Qualified Code(s): S39.012A - Strain of muscle, fascia and tendon of lower back, initial encounter Patient Disposition: Home, Self-Care Condition: Stable Instructions: Low Back Strain (ED), Acute Low Back Pain (ED), Lower Back Exercises (ED) Additional Instructions: Take ibuprofen as directed to decrease inflammation and to help pain. Take Baclofen (muscle relaxer) as directed. Do not drink, drive, operate machinery, or do anything dangerous while taking this medication Exercise:Combine aerobic exercise, like walking or swimming, with specific exercises to keep the muscles in your back and abdomen strong and flexible. Proper Lifting:Be sure to lift heavy items with your legs, not your back. Do not bend over to pick something up. Keep your back straight and bend at your knees. Weight:Maintain a healthy weight. Being overweight puts added stress on your lower back. Avoid Smoking:Both the smoke and the nicotine cause your spine to age faster than normal. Proper Posture:Good posture is important for avoiding future problems. A therapist can teach you how to safely stand, sit, and lift. Use warm moist heat to help with pain. Using topical such as Biofreeze, Devon-Barrera or Aspercreme can also help Follow up with Primary provider in 2-3 days, This may become a chronic condition and they will be the one to help manage your pain and order additional testing. Go to the nearest ER if you develop problems with bladder/bowel function, weakness or loss of feeling in one or both of your legs. Patient Language: Vietnamese Prescriptions: New ibuprofen 600 mg tablet 600 mg PO TID PRN (Reason: fever or pain) Qty: 30 0RF baclofen 10 mg tablet 10 mg PO TID PRN (Reason: muscle pain) Qty: 10 0RF No Action metformin 500 mg tablet losartan 100 mg tablet Follow-up/Referrals: [facility] [Primary Care Provider] - 1 Week (express care follow up ) Stand Alone Forms: Work/School Release IP Time of Disposition: 17:08
== END 2024-11-11 17:10 | disposition home or self-care (01) ==
PROVIDERS: Emergency Provider Nurse Practitioner
DX: S39.012A Strain of muscle, fascia and tendon of lower back, initial encounter (principal); X58.XXXA Exposure to other specified factors, initial encounter; I10 Essential (primary) hypertension; K21.9 Gastro-esophageal reflux disease without esophagitis; E11.9 Type 2 diabetes mellitus without complications
CPT/HCPCS: 99213; G0463